=== PATIENT | female | born 1960 | race Two or more races ===

== ENCOUNTER 2018-09-29 07:00 | Inpatient (IN) | payer OTHER ==
[~2018-09-29] VITALS: Ht 170.2 cm; Wt 81.6 kg
[2018-09-29] MEDS ORDERED: TRILEPTAL300 MG PO (12:35)
[2018-09-29] MEDS ORDERED: SYNTHROID150 MCG PO (12:36)
[2018-09-29] MEDS ORDERED: RAYOS1 MG PO (12:36)
[2018-09-29] MEDS ORDERED: FOSAMAX70 MG PO (12:36)
[2018-09-29] MEDS ORDERED: ICAPS AREDS FO1 EACH PO (12:37)
[2018-09-29] MEDS ORDERED: PROBIOTIC1 EAC4 PO (12:37)
[2018-09-29] MEDS ORDERED: VITAMIN D310000 UNIT PO (12:38)
[2018-10-10] MEDS ORDERED: ULTRACET PO (09:55)
[2018-10-10] MEDS ORDERED: MIRALAX17 GM PO (09:55)
[2018-10-10] MEDS ORDERED: NEURONTIN300 MG PO (09:55)
== END 2018-10-10 11:18 | disposition home or self-care (01) | DRG 354 ==
LOC: SURH 10-07 07:00 → RECOVERY 10-07 07:00 → EDSTATUS 10-07 07:00 → SURH 10-07 07:07 → O/R 10-07 07:07 → SURH 10-07 11:56
PROVIDERS: Surgery
PROC: 0WJF4ZZ Inspection of Abdominal Wall, Percutaneous Endoscopic Approach (ICD-10-PCS; 2018-10-07)
PROC: 0JX80ZZ Transfer Abdomen Subcutaneous Tissue and Fascia, Open Approach (ICD-10-PCS; 2018-10-07)
PROC: 0WUF0JZ Supplement Abdominal Wall with Synthetic Substitute, Open Approach (ICD-10-PCS; principal; 2018-10-07 07:00)
DX: K43.0 Incisional hernia with obstruction, without gangrene (principal); G40.89 Other seizures; K42.0 Umbilical hernia with obstruction, without gangrene; E03.8 Other specified hypothyroidism; Z85.038 Personal history of other malignant neoplasm of large intestine; Z90.49 Acquired absence of other specified parts of digestive tract

== ENCOUNTER 2018-10-15 13:28 | Emergency (ER) | payer OTHER ==
[~2018-10-15] VITALS: Ht 170.2 cm; Wt 79.8 kg
[~2018-10-15 13:28] MED LIST: FOSAMAX70 MG PO; ICAPS AREDS FO1 EACH PO; MIRALAX17 GM PO; NEURONTIN300 MG PO; PROBIOTIC1 EAC4 PO; RAYOS1 MG PO; SYNTHROID150 MCG PO; TRILEPTAL300 MG PO; ULTRACET PO; VITAMIN D310000 UNIT PO
== END 2018-10-15 16:37 | disposition home or self-care (01) ==
LOC: ER 13:28
DX: R42 Dizziness and giddiness (principal)

== ENCOUNTER 2020-11-18 14:06 | Emergency (ER) | payer OTHER ==
[~2020-11-18] VITALS: Ht 170.2 cm; Wt 77.1 kg
[2020-11-18] MEDS ORDERED: TRILEPTAL300 MG PO (14:37)
[2020-11-18] MEDS ORDERED: FOSAMAX70 MG PO (14:38)
== END 2020-11-18 17:40 | disposition home or self-care (01) ==
LOC: ER 14:06
DX: R42 Dizziness and giddiness (principal)

== ENCOUNTER 2021-02-08 16:11 | Emergency (ER) | payer OTHER ==
[~2021-02-08] VITALS: Ht 167.6 cm; Wt 74.8 kg
== END 2021-02-08 22:18 | disposition home or self-care (01) ==
LOC: ER 16:11
DX: R42 Dizziness and giddiness (principal); E86.0 Dehydration; R11.11 Vomiting without nausea

== ENCOUNTER 2024-09-07 07:08 | Outpatient (CLI) | payer OTHER ==
[2024-09-07 07:56] LABS: HEMATOCRIT 43.7 % (36.0-45.00); HEMOGLOBIN 15.1 g/dL (12.0-15.00); MEAN CELL VOLUME 93.5 fL (80.00-100.00); MEAN CORPUSCULAR HEMOGLOBIN 32.3 pg (27.00-32.0); MEAN CORPUSCULAR HGB CONC 34.5 g/dl (32.0-36.0); PLATELET COUNT 211 K/uL (150-450); RED BLOOD COUNT 4.67 M/uL (4.00-6.00); RED CELL DISTRIBUTION WIDTH 13.8 % (11.5-14.5)
[2024-09-07 07:59] LABS: PH,URINE 5.5 (5.0-8.0); URINE APPEARANCE Clear; URINE BILIRRUBIN Negative (NEGATIVE); URINE BLOOD Negative; URINE COLOR Yellow; URINE GLUCOSE Negative (NEGATIVE); URINE KETONE Negative (NEGATIVE); URINE LEUKOCYTE Trace; URINE NITRATE Negative; URINE PROTEIN Negative (NEGATIVE); URINE UROBILINOGEN 0.2 E.U./dl
[2024-09-07 08:03] LABS: URINE BACTERIA 558.1 uL (0.0-1933); URINE EPITHELIAL CELLS 98.1 uL (0.0-38.8); URINE RBC 10.8 uL (0.0-20.8); URINE WBC 14.9 uL (0.0-23.2)
[2024-09-07 08:34] LABS: ALBUMIN 3.7 gm/dL (3.4-5.0); BILIRUBIN TOTAL 0.89 mg/dL (0.3-1.2); CALCIUM 9.4 mg/dL (8.5-10.1); CHOL HDL RATIO 3.4 (0-5.0); CREATININE SERUM 0.59 mg/dL (0.55-1.02); GFR 103.28; POTASSIUM 3.86 mEq/L (3.5-5.1); T4 FREE 0.73 NG/ML (0.76-1.46); TOTAL PROTEIN 6.7 gm/dL (6.4-8.2); TSH 0.574 uIU/mL (0.358-3.74)
[2024-09-07 08:36] LABS: URINE CAST 0.15 uL (0.0-1.40)
== END 2024-09-07 07:19 | disposition home or self-care (01) ==
LOC: LAB 07:08
PROVIDERS: ATTEND Internal Medicine
DX: D50.9 Iron deficiency anemia, unspecified (principal); E11.9 Type 2 diabetes mellitus without complications; E78.2 Mixed hyperlipidemia; E03.9 Hypothyroidism, unspecified; N39.0 Urinary tract infection, site not specified; R80.9 Proteinuria, unspecified